=== PATIENT | male | born 1990 | race Two or more races ===

== ENCOUNTER 2025-04-17 08:58 | Outpatient (CLI) | payer OTHER ==
[2025-04-17 09:24] LABS: BASO % 0.4 % (0.1-1.2); EOS # 0.31 (0.04-0.54); EOS % 5.7 % (0.7-7.0); LYMPH # 1.78 (1.18-3.74); LYMPH % 32.6 % (19.3-53.1); MEAN PLATELET VOLUME 10.70 fl (9.4-12.4); MONO # 0.48 (0.24-0.82); MONO % 8.8 % (4.7-12.5); NEUT # 2.87 (1.56-6.13); NEUT % 52.5 % (34.0-71.1); RED CELL DISTRIBUTION WIDTH 12.2 % (11.6-14.4)
[2025-04-17 10:21] LABS: URINE APPEARANCE Clear; URINE BILIRRUBIN Negative (NEGATIVE); URINE BLOOD Negative; URINE COLOR Yellow; URINE GLUCOSE Negative (NEGATIVE); URINE KETONE Negative (NEGATIVE); URINE LEUKOCYTE Negative; URINE NITRATE Negative; URINE PROTEIN Negative (NEGATIVE); URINE UROBILINOGEN 0.2 E.U./dl
[2025-04-17 10:25] LABS: URINE RBC 2.2 uL (0.0-20.8)
[2025-04-17 10:26] LABS: URINE BACTERIA 0 uL (0.0-1933); URINE CAST 0.00 uL (0.0-1.40); URINE EPITHELIAL CELLS 0.1 uL (0.0-38.8); URINE WBC 0 uL (0.0-23.2)
[2025-04-17 10:46] LABS: ALT/SGPT 30.0 U/L (12-78); AST/SGOT 18.0 U/L (15-37); BILIRUBIN TOTAL 0.81 mg/dL (0.3-1.2); BUN CREA RATIO 17.0 (7.0-25.0); CHOL HDL RATIO 2.9 (0-5.0); CREATININE SERUM 0.96 mg/dL (0.70-1.30); GFR 89.13; GLOBULINA 3.0 G/DL (2.4-3.5); GLUCOSE FASTING 83.0 mg/dL (65-100); HDL 58.0 mg/dl (40-60); LDL 97.0 mg/dl (0-130); OSMOLALITY SERUM 285.0 MOSM/KG (275-295); PROSTATIC SPECIFIC ANTIGEN 0.346 NG/ML (0.010-4.00); T3 UPTAKE 35.0 % (33-40); T4 TOTAL 6.56 UG/DL (4.5-12.1); TSH 0.691 uIU/mL (0.358-3.74); VLDL 16.0 (0-39)
[2025-04-17 11:35] LABS: T3 TOTAL 0.973 ng/ml (0.846-2.02)
== END 2025-04-17 09:20 | disposition home or self-care (01) ==
LOC: LAB 08:58
PROVIDERS: ATTEND Internal Medicine
DX: I10 Essential (primary) hypertension (principal); Z01.810 Encounter for preprocedural cardiovascular examination; E03.9 Hypothyroidism, unspecified; E78.9 Disorder of lipoprotein metabolism, unspecified; E11.51 Type 2 diabetes mellitus with diabetic peripheral angiopathy without gangrene; G62.9 Polyneuropathy, unspecified; Z12.11 Encounter for screening for malignant neoplasm of colon; R55 Syncope and collapse

== ENCOUNTER 2025-04-17 09:13 | Outpatient (CLI) | payer OTHER | END 2025-04-17 09:15 | disposition home or self-care (01) | LOC: NUCLEAR 09:13 | PROVIDERS: ATTEND Internal Medicine | DX: R55 Syncope and collapse (principal) ==